=== PATIENT | male | born 1955 | race Caucasian/White ===

== ENCOUNTER → 2023-01-18 09:37 | Outpatient (BNVA) | payer MEDICARE, SELFPAY | PROVIDERS: PCP Family Medicine; Visit Provider Psychiatry & Neurology Neurology | DX: R20.2 Paresthesia of skin (principal) | CPT/HCPCS: 99202 ==

== ENCOUNTER 2023-03-04 08:50 | Outpatient (REF) | payer MEDICARE, SELFPAY ==
--- NOTE | 2023-03-04 09:05 | EMG_ITS ---
FINDINGS: Bilateral tibial and peroneal motor studies were performed. Bilateral radial sensory studies were performed. Bilateral medial and lateral plantar mixed studies were performed. Tibial H reflexes were obtained and paraspinal muscles were tested with a needle. IMPRESSION: [id number] axonal sensory motor peripheral neuropathy. MD SHAZIA Valladares/LILIANA / [phone]
== END 2023-03-04 08:51 | disposition home or self-care (01) ==
LOC: HO.NEURO 08:50
PROVIDERS: PCP Family Medicine; Visit Provider Psychiatry & Neurology Neurology
DX: R20.2 Paresthesia of skin (principal)
CPT/HCPCS: 95886; 95913

== ENCOUNTER 2023-05-06 11:18 | Outpatient (AMB) | payer MEDICARE, SELFPAY ==
[2023-05-06 11:19] VITALS: BP 130/76; PULSE 66; O2SAT 98; BMI 25.4
--- NOTE | 2023-05-06 11:19 | A.OFFVIS_ITS ---
Intake Vital Signs 05/06/23 11:19 Height 5 ft 7 in Weight 162 lb 8 oz BMI 25.4 BP 130/76 Blood Pressure Location Lt brachial Position Sitting Pulse 66 Pulse Source Pulse Oximeter Pulse Oximetry (%) 98 Oxygen Delivery Method Room Air Intake Visit Reasons: 3m follow up Periphereal Neurology-confirmed Intake Note: Pt presents as a 3 month f/u. Deputy Treasurer Required: No Allergies No Known Allergies Allergy (Verified 05/06/23 11:22) Medication List - Last Reconciled 05/06/23 by Maggie Zeng MD alpha lipoic acid 600 mg PO DAILY aspirin 81 mg PO DAILY ezetimibe (Zetia) 10 mg PO DAILY lisinopril-hydrochlorothiazide 20-12.5 mg 1 tab PO DAILY omega 7-skn-tnq-fish oil 60-90-500 mg (Fish Oil) 1 cap PO DAILY simvastatin 20 mg PO DAILY HPI HPI Comments History of Present Illness Details 67y/o male comes for follow up of intermittent abnormal sensation in his feet which started about 3 years ago. He was started on alpha lipoic acid which helps/ he denies any worsening His EMG was c/w sensorimotor axonal neuropathy.His labs were normal The episodes are usually when he is wearing his shoes and ambulating . Once he takes his shoes off and rests he is better in 30 minutes. It does not happen when he is wearing slippers or sandals. He describes the sensation as feeling hot and uncomfortable in his feet ( R>L). He denies back pain, tingling sensation , numbness. He has noticed improvement with stretching his toes.when he takes his shoes off the skin is red transiently.He denies uE symptoms , weakness. 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 [facility] Medical History Axonal sensorimotor neuropathy Colon polyp HTN (hypertension) Hyperlipidemia BOY on CPAP Paresthesias Prediabetes Thyroid nodule Surgical History H/O colonoscopy H/O hernia repair Family History Mother HTN (hypertension) Father Colon cancer Diabetes HTN (hypertension) Brother Diabetes HTN (hypertension) Sister Diabetes HTN (hypertension) Social History Alcohol intake: current Alcohol intake frequency: 0-2 drinks per day Alcohol type: beer Patient Tobacco Use Status: Never used Tobacco Physical Exam Vital Signs: Last Vital Signs Pulse 66 05/06/23 11:19 BP 130/76 05/06/23 11:19 Pulse Ox 98 05/06/23 11:19 Oxygen Delivery Method Room Air 05/06/23 11:19 BMI result Body Mass Index 25.4 Const General: cooperative, healthy appearing, comfortable, no acute distress and well developed Nutritional Appearance: average body habitus Orientation/consciousness: patient oriented x3 Limitations: no limitations HEENT Head: Yes normal to inspection and Yes normocephalic Neuro General: patient oriented x3, gait normal, tone normal and moves all extremities Cognition (Neuro): normal cognition Gait exam (Neuro): Other gait observations present (mild stoop ) Motor exam (neuro): 5/5 motor strength present throughout and Normal motor muscle tone present throughout Deep tendon reflexes (DTR's): Right triceps reflex intensity grade: 2+, Left triceps reflex intensity grade: 2+, Rt Biceps (C5, C6): 2+, Left biceps reflex intensity grade: 2+, Right brachioradialis reflex intensity grade: 2+, Left brachioradialis reflex intensity grade: 2+, Right patellar reflex intensity grade: 1+, Left patellar reflex intensity grade: 1+, Right ankle reflex inten sity grade: 0 and Left ankle reflex intensity grade: 0 Coordination: [id number] test normal Psych Appearance: grossly normal Assessment & Plan Assessment & Plan (1) Axonal sensorimotor neuropathy: Code(s): G6. - Other specified polyneuropathies Plan Continue alpha lipoic acid 600mg qd I will check his anti Hu antibody SPEP. will consider pT Orders: Orders HU Antibody Today - Other specified polyneuropathies Protein Electrophoresis, Serum Today - Other specified polyneuropathies Protein Electrophoresis,Ran Ur Today - Other specified polyneuropathies Coding Level of Care Code Est Pt Level 4 (92872) Diagnoses Axonal sensorimotor neuropathy
== END 2023-05-06 11:52 | disposition home or self-care (01) ==
PROVIDERS: Visit Provider Psychiatry & Neurology Neurology
DX: G62.89 Other specified polyneuropathies (principal)
CPT/HCPCS: 99214

== ENCOUNTER → 2023-05-06 11:18 | Outpatient (BNVA) | payer MEDICARE, SELFPAY | PROVIDERS: Visit Provider Psychiatry & Neurology Neurology | DX: G62.89 Other specified polyneuropathies (principal); Z79.899 Other long term (current) drug therapy | CPT/HCPCS: 99212 ==

== ENCOUNTER 2023-11-16 10:12 | Outpatient (AMB) | payer MEDICARE, SELFPAY ==
--- NOTE | 2023-11-16 10:16 | MHC.OFFVIS ---
Intake Vital Signs 11/16/23 10:17 Height 5 ft 7 in Weight 160 lb BMI 25.1 BP 120/62 Blood Pressure Location Rt brachial Position Sitting Respiration 16 Pulse 67 Pulse Source Pulse Oximeter Pulse Oximetry (%) 99 Oxygen Delivery Method Room Air Intake Visit Reasons: follow up Intake Note: Pt presents for 4 month follow up for peripheral neuropathy. Supervising Fire Marshal Required: No Allergies No Known Allergies Allergy (Verified 11/16/23 10:17) HPI HPI Comments History of Present Illness Details 67y/o male comes for follow up of intermittent abnormal sensation in his feet which started about 3 years ago. He was started on alpha lipoic acid which helps/ he denies any worsening His EMG was c/w sensorimotor axonal neuropathy.His labs were normal except for AMY positive speckled. The episodes are usually when he is wearing his shoes and ambulating . Once he takes his shoes off and rests he is better in 30 minutes. It does not happen when he is wearing slippers or sandals. He describes the sensation as feeling hot and uncomfortable in his feet ( R>L). He denies back pain, tingling sensation , numbness. He has noticed improvement with stretching his toes.when he takes his shoes off the skin is red transiently.He denies uE symptoms , weakness. 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 [facility] Medical History Axonal sensorimotor neuropathy Colon polyp HTN (hypertension) Hyperlipidemia BOY on CPAP Paresthesias Prediabetes Thyroid nodule Surgical History H/O hernia repair H/O colonoscopy Family History Mother HTN (hypertension) Father Colon cancer Diabetes HTN (hypertension) Brother Diabetes HTN (hypertension) Sister Diabetes HTN (hypertension) Social History Alcohol intake: current Alcohol intake frequency: 0-2 drinks per day Alcohol type: beer Patient Tobacco Use Status: Never used Tobacco Physical Exam Vital Signs: Last Vital Signs Pulse 67 11/16/23 10:17 Resp 16 11/16/23 10:17 BP 120/62 11/16/23 10:17 Pulse Ox 99 11/16/23 10:17 Oxygen Delivery Method Room Air 11/16/23 10:17 BMI result Body Mass Index 25.1 Const General: cooperative, healthy appearing, comfortable, no acute distress and well developed Nutritional Appearance: average body habitus Orientation/consciousness: patient oriented x3 Limitations: no limitations HEENT Head: Yes normal to inspection and Yes normocephalic Neuro General: patient oriented x3, gait normal, tone normal and moves all extremities Cognition (Neuro): normal cognition Gait exam (Neuro): Other gait observations present (mild stoop ) Motor exam (neuro): 5/5 motor strength present throughout and Normal motor muscle tone present throughout Coordination: [id number] test normal Psych Appearance: grossly normal Assessment & Plan Assessment & Plan (1) Axonal sensorimotor neuropathy: Code(s): G62.89 - Other specified polyneuropathies Plan Continue alpha lipoic acid 600mg qd anti Hu antibody SPEP.were negative Positive AMY - will discuss with continuous improvement analyst Coding Level of Care Code Est Pt Level 3 (64021) Diagnoses Axonal sensorimotor neuropathy G62.89
[2023-11-16 10:17] VITALS: BP 120/62; PULSE 67; RESP 16; O2SAT 99; BMI 25.1
== END 2023-11-16 10:48 | disposition home or self-care (01) ==
PROVIDERS: PCP Family Medicine; Visit Provider Psychiatry & Neurology Neurology
DX: G62.89 Other specified polyneuropathies (principal)
CPT/HCPCS: 99213

== ENCOUNTER → 2023-11-16 10:12 | Outpatient (BNVA) | payer MEDICARE, SELFPAY | PROVIDERS: PCP Family Medicine; Visit Provider Psychiatry & Neurology Neurology | DX: G62.89 Other specified polyneuropathies (principal) | CPT/HCPCS: 99212 ==

== ENCOUNTER 2023-12-21 08:33 | Outpatient (AMB) | payer MEDICARE, SELFPAY ==
--- NOTE | 2023-12-21 08:41 | A.OFFVIS_ITS ---
Intake Vital Signs 3 12/21/23 08:42 Height 5 ft 7 in Weight 167 lb 1.766 oz BMI 26.2 BP 132/68 Blood Pressure Location Rt brachial Position Sitting Pulse 70 Pulse Source Pulse Oximeter Pulse Oximetry (%) 97 Oxygen Delivery Method Room Air Intake Visit Reasons: polyneuropathies/cm Intake Note: New pt presents today for +AMY consult, internally referred by neurology Dr Zeng. C/o bl feet pain. States he saw clay artisan in [place] about 2 years ago, but was not very helpful. Customer Advocate Required: No Accompanied by: Self / Same As Patient Allergies No Known Allergies Allergy (Verified 12/21/23 08:49) Medication List - Last Reconciled 12/21/23 by Shey Sanders MD alpha lipoic acid 600 mg PO DAILY aspirin 81 mg PO DAILY ezetimibe-simvastatin 10-20 mg 1 tab PO BEDTIME lisinopril-hydrochlorothiazide 20-12.5 mg 1 tab PO DAILY omega 6-jbd-izn-fish oil 60-90-500 mg (Fish Oil) 1 cap PO DAILY HPI HPI Comments 2 History of Present Illness0 Details 68-year-old male is referred from Neurol og for evaluation of a positive AMY. This was in the setting of paresthesias of lower extremities. The condition started about 4 years ago. He would have burning, hot sensation and tingling of his feet bilaterally. This would be triggered by doing yd work, especially in the cold, but it even sometimes happens in the summer. He also notices reddish discoloration of his toes in the morning. He does not believe he has the triphasic color change of Raynaud's. He denies any change in color of his hands. He was started on alpha lipoic acid about a year ago and it provides about 50% relief. Denies any other symptoms such as fevers, weight loss, skin rashes, blood or froth in urine. States that he has dry mouth but he uses a CPAP machine at night. Does not have dry mouth throughout the day and no significant dry eyes. States that he had skin growth in the back of his neck and it was removed Mohs surgery a few years ago. Was told it was cancerous or precancerous. Denies any history of DVT/PE. Patient states that he smokes a cigar once a month. No history of regular tobacco use. No known family history of an autoimmune rheumatic disease but colorectal cancer runs in the family. He gets a colonoscopy every 3 years. [facility] Medical History Positive AMY (antinuclear antibody) Axonal sensorimotor neuropathy Paresthesias Thyroid nodule Prediabetes Colon polyp Hyperlipidemia HTN (hypertension) BOY on CPAP Surgical History H/O hernia repair H/O colonoscopy Family History Mother HTN (hypertension) Father Colon cancer Diabetes HTN (hypertension) Brother Diabetes HTN (hypertension) Sister Diabetes HTN (hypertension) Social History Alcohol intake: current Alcohol intake frequency: a few times a week Alcohol type: beer Patient Tobacco Use Status: Never used Tobacco Current occupational status: retired Review of Systems Const Denies fever(s) and Denies weight loss Eyes Denies dry eyes Musc Reports arthralgias, Denies joint swelling and Reports numbness Neuro Reports numbness and Reports paresthesias Physical Exam Vital Signs: Last Vital Signs Pulse 70 12/21/23 08:42 BP 132/68 12/21/23 08:42 Pulse Ox 97 12/21/23 08:42 Oxygen Delivery Method Room Air 12/21/23 08:42 BMI result Body Mass Index 26.2 Const General: cooperative, healthy appearing and comfortable Nutritional Appearance: average body habitus Orientation/consciousness: patient oriented x3 Limitations: no limitations HEENT Head: Yes normocephalic and Yes atraumatic Mouth: moist mucous membranes Resp Effort & Inspection: normal respiratory effort and able to speak in complete sentences Auscultation: clear to auscultation bilaterally Cardio Rate: regular rate Rhythm: regular rhythm Neuro General: patient oriented x3 Extrem Other: No active synovitis Normal finger and toes nailfold capillaroscopy Bilateral cool toes Normal dorsalis pedis pulsation Assessment & Plan Assessment & Plan (1) Positive AMY (antinuclear antibody): Code(s): R76.8 - Other specified abnormal immunological findings in serum Plan: This is a 68-year-old male who was referred by neurologist for evaluation of a positive AMY this was in the context of paresthesias both feet. There is some suggestion that his symptoms are triggered by cold exposure. On exam he has reddish discoloration of toes, cool toes. Will order comprehensive serology to screen for underlying autoimmune rheumatic disease. Follow-up in 4 weeks Plan I spent 47 minutes reviewing patient's chart, evaluating patient, ordering diagnostic workup, counseling patient and documenting in the chart Orders: Orders 2 Beta-2 Glycoprotein Antibody Today D68.61 - Antiphospholipid syndrome Cardiolipin Antibodies Today D68.61 - Antiphospholipid syndrome Lupus Anticoagulant Panel Today D68.61 - Antiphospholipid syndrome Anti Extractable Nuclear Ag Today M32.9 - Systemic lupus erythematosus, unspecified Anti DNA DS Antibody Today M32.9 - Systemic lupus erythematosus, unspecified Complement C4 Today M32.9 - Systemic lupus erythematosus, unspecified C Reactive Protein Today M32.9 - Systemic lupus erythematosus, unspecified Protein Creatinine Ratio, Ur Today M32.9 - Systemic lupus erythematosus, unspecified Sjogren's Antibodies Today M32.9 - Systemic lupus erythematosus, unspecified Comprehensive Met. Panel Today M32.9 - Systemic lupus erythematosus, unspecified Scleroderma 12 Panel Today M34.9 - Systemic sclerosis, unspecified Thyroglobulin Antibodies Today E07.9 - Disorder of thyroid, unspecified TSH reflex Free T4 Today E07.9 - Disorder of thyroid, unspecified Cryoglobulin Today D89.1 - Cryoglobulinemia AMY Reflex Titer and Pattern Today M32.9 - Systemic lupus erythematosus, unspecified Complement C3 Today M32.9 - Systemic lupus erythematosus, unspecified DNA Double Stranded-Crithidia Today M32.9 - Systemic lupus erythematosus, unspecified Erythrocyte Sedimentation Rate Today M32.9 - Systemic lupus erythematosus, unspecified UA w Microscopic Today M32.9 - Systemic lupus erythematosus, unspecified Complete Blood Count Auto Diff Today M32.9 - Systemic lupus erythematosus, unspecified Immunofixation Pnl, Serum Today M34.9 - Systemic sclerosis, unspecified Protein Electrophoresis, Serum Today M34.9 - Systemic sclerosis, unspecified Thyroid Peroxidase Antibodies Today E07.9 - Disorder of thyroid, unspecified Hepatitis A,B,C Profile Today Z11.59 - Encounter for screening for other viral diseases Coding Level of Care Code New Pt Level 4 (49291) Diagnoses Positive AMY (antinuclear antibody) R76.8
[2023-12-21 08:42] VITALS: BP 132/68; PULSE 70; O2SAT 97; BMI 26.2
== END 2023-12-21 09:22 | disposition home or self-care (01) ==
PROVIDERS: PCP Family Medicine; Visit Provider Student in an Organized Health Care Education/Training Program
DX: R76.8 Other specified abnormal immunological findings in serum (principal)
CPT/HCPCS: 99204

== ENCOUNTER 2023-12-21 08:33 | Outpatient (REF) | payer MEDICARE, SELFPAY ==
[2023-12-21 10:24] LABS: MANUAL DIFF FLAG NO
[2023-12-21 10:41] LABS: Basophils Percent Auto 0.6 % (0-2); Eosinophils Absolute Auto 0.1 X10*3/uL (0.0-0.4); Hematocrit 45.6 % (42.0-52.0); Hemoglobin 15.9 g/dl (14.0-18.0); Imm Gran Abs Auto 0.06 X10*3/uL (0.00-0.03); Imm Gran Pct Auto 1.2 % (0.0-0.4); Lymphocytes Absolute Auto 0.8 X10*3/uL (1.2-4.9); Mean Corpuscular HGB Conc 34.9 g/dl (31.0-36.0); Mean Corpuscular Hemoglobin 31.5 pg (27.0-33.0); Mean Corpuscular Volume 90.3 fL (80.0-98.0); Mean Platelet Volume 11.4 fL (9.4-12.4); Monocytes Absolute Auto 0.5 X10*3/uL (0.1-1.2); Monocytes Percent Auto 9.6 % (2-11); Neutrophils Absolute Auto 3.7 x10*3/uL (2.0-8.3); Neutrophils Percent Auto 71.6 % (45-73); Platelet Count 176 X10*3/uL (160-400); Red Blood Count 5.05 X10*6/uL (4.60-5.80); Red Cell Distribution Width 12.4 % (11.0-16.0); White Blood Count 5.2 X10*3/uL (4.8-10.8)
[2023-12-21 11:37] LABS: Erythrocyte Sedimentation Rate 2 MM/HR (0-15)
[2023-12-21 11:57] LABS: Appearance Urine Clear; Color Urine Dark Yellow; Glucose Urine UA Negative (Negative); Leukocyte Esterase Urine Negative (Negative); Nitrite Urine Negative (Negative); Urine Blood Negative (Negative); Urine Ketones Negative (Negative); Urine Protein Negative (Neg-Trace)
[2023-12-21 12:03] LABS: Bacteria Urine None Seen (None Seen); Hyaline Casts Urine 0-2 /LPF (0-2); RBC Urine 0-2 /HPF (0-2); Squamous Epithelial Cell Urine 0-2 /HPF (0-2); WBC Urine 0-5 /HPF (0-5)
[2023-12-21 12:11] LABS: Alanine Aminotransferase 23 U/L (0-40); Albumin Level 4.6 g/dL (3.5-5.0); Alkaline Phosphatase 78 U/L (39-117); Anion Gap 13 (12-20); Aspartate Amino Transferase 24 U/L (5-37); Bilirubin Total 0.7 mg/dL (0.0-1.0); Blood Urea Nitrogen 17 mg/dL (9-16); C Reactive Protein < 0.10 mg/dL (< or = 0.50); Calcium 9.7 mg/dL (8.4-10.2); Carbon Dioxide 25 mmol/L (22-29); Chloride 103 mmol/L (96-108); Estimated Glomerular Filt Rate > 60; Glucose Random 125 mg/dL (60-115); Potassium 3.7 mmol/L (3.3-5.1); Sodium 137 mmol/L (135-145); Total Protein 7.7 g/dL (6.5-8.0)
[2023-12-21 12:30] LABS: TSH reflex Free T4 1.51 uIU/mL (0.32-4.0)
[2023-12-21 12:33] LABS: HBS Num1 0.39 mIU/mL (0-7.99); HBc Num1 0.11 S/CO (0.00-0.79); HBsAGNum1 0.29 S/CO (0.00-0.99); Hepatitis A Antibody IgM 0.15 Index (0-0.79); Hepatitis B Core Antibody Nonreactive (Nonreactive); Hepatitis B Surface Antigen Negative (Negative); ~Hepatitis A Antibody IgM Nonreactive (Nonreactive); ~Hepatitis B Surface Antibody NONREACTIVE (Nonreactive); ~Hepatitis C Antibody Nonreactive (Nonreactive)
[2023-12-21 13:05] LABS: Creatinine Urine 97.42 mg/dL; Total Protein Urine Random < 7 mg/dL (<12)
[2023-12-22 09:38] LABS: Thyroglobulin Antibodies <1 IU/mL (< or = 1); Thyroid Peroxidase Antibodies <1 IU/mL (<9)
[2023-12-22 13:18] LABS: Prot Elec - Albumin 4.9 g/dL (3.8-4.8); Prot Elec - Alpha1 0.2 g/dL (0.2-0.3); Prot Elec - Alpha2 0.7 g/dL (0.5-0.9); Prot Elec - Beta 1 0.5 g/dL (0.4-0.6); Prot Elec - Beta 2 0.4 g/dL (0.2-0.5); Prot Elec - Gamma 0.9 g/dL (0.8-1.7); Prot Elec - Total Protein 7.6 g/dL (6.1-8.1)
[2023-12-22 20:09] LABS: Anti DNA DS Antibody <1 IU/mL; Antibody to SS-A Antigen <1.0 NEG AI (<1.0 NEG); Antibody to SS-B Antigen <1.0 NEG AI (<1.0 NEG); SM/Ribonucleoprotein Ab <1.0 NEG AI (<1.0 NEG); Smith Protein <1.0 NEG AI (<1.0 NEG)
[2023-12-23 09:28] LABS: Complement C3 72 mg/dL (82-185)
[2023-12-23 11:43] LABS: IgA 254 mg/dL (70-320); IgG 1005 mg/dL (600-1540); IgM 102 mg/dL (50-300)
[2023-12-23 14:59] LABS: Cardiolipin IgG Ab <2.0 GPL-U/mL; Cardiolipin IgM Ab 2.7 MPL-U/mL
[2023-12-23 15:07] LABS: Anti Nuclear Antibody Screen NEGATIVE (NEGATIVE)
[2023-12-24 23:03] LABS: Beta-2 Glycoprotein IgA <2.0 U/mL (<20.0); Beta-2 Glycoprotein IgG <2.0 U/mL (<20.0); Beta-2 Glycoprotein IgM 5.5 U/mL (<20.0)
[2023-12-25 00:19] LABS: DNAds, Crithidia Antibody Negative (Negative)
[2023-12-25 07:23] LABS: PTT (LAC) Screen 36 sec (<=40)
[2023-12-27 20:43] LABS: Cryoglobulin, Qual Negative (Negative)
[2024-01-01 18:23] LABS: Centromere Protein A Ab <11 SI (<11); Centromere Protein B Ab <11 SI (<11); Fibrillarin Ab <11 SI (<11); PM SCL 100 Ab <11 SI (<11); PM SCL 75 Ab <11 SI (<11); RNA Polymerase III RP11 Ab <11 SI (<11); RNA Polymerase III RP155 Ab <11 SI (<11); SCL-70 Extractable Nuclear Ab <11 SI (<11); Th-To Ab <11 SI (<11); U1 SNRNP RNP 70KD <11 SI (<11); U1 SNRNP RNP A <11 SI (<11); U1 SNRNP RNP C <11 SI (<11)
== END 2023-12-21 08:34 | disposition home or self-care (01) ==
LOC: HO.LAB 08:33
PROVIDERS: PCP Family Medicine; Visit Provider Student in an Organized Health Care Education/Training Program
DX: E07.9 Disorder of thyroid, unspecified (principal); R76.8 Other specified abnormal immunological findings in serum; G62.9 Polyneuropathy, unspecified; R20.2 Paresthesia of skin; D68.61 Antiphospholipid syndrome; M32.9 Systemic lupus erythematosus, unspecified; M34.9 Systemic sclerosis, unspecified; D89.1 Cryoglobulinemia; Z11.59 Encounter for screening for other viral diseases; Z72.89 Other problems related to lifestyle; Z79.899 Other long term (current) drug therapy
CPT/HCPCS: 36415; 80053; 81001; 82570; 82595; 82784; 84156; 84165; 84182; 84443; 85025; 85597; 85598; 85613; 85652; 85730; 86038; 86140; 86146; 86147; 86160; 86225; 86235; 86255; 86334; 86376; 86704; 86706; 86709; 86800; 86803; 87340; 99202

== ENCOUNTER 2024-02-28 07:54 | Outpatient (AMB) | payer MEDICARE, SELFPAY ==
--- NOTE | 2024-02-28 07:54 | A.OFFVIS_ITS ---
Vital Signs 3 02/28/24 07:55 Height 5 ft 7 in Weight 170 lb 10.205 oz BMI 26.7 BP 138/66 Blood Pressure Location Rt brachial Position Sitting Pulse 73 Pulse Source Pulse Oximeter Pulse Oximetry (%) 100 Oxygen Delivery Method Room Air Intake Visit Reasons: AMY +ve Intake Note: Patient last seen 12/21/23 presents today for follow up and test results. Allergies No Known Allergies Allergy (Verified 02/28/24 07:57) Medication List - Last Reconciled 02/28/24 by Shey Sanders MD alpha lipoic acid 600 mg PO DAILY aspirin 81 mg PO DAILY ezetimibe-simvastatin 10-20 mg 1 tab PO BEDTIME lisinopril-hydrochlorothiazide 20-12.5 mg 1 tab PO DAILY omega 6-hop-zzj-fish oil 60-90-500 mg (Fish Oil) 1 cap PO DAILY HPI Comments Details: Patient returns for follow-up after completion of his diagnostic workup. Continues to feel about the same. Gets abnormal sensation in his toes after standing in work shows for 5-6 hours. Denies any significant change in color of his fingers or toes. Denies any increased sensitivity to cold in his fingers and toes. Has noticed new skin rashes on the inner aspect of his face bilaterally Initial history: 68-year-old male is referred from Neurology for evaluation of a positive AMY. This was in the setting of paresthesias of lower extremities. The condition started about 4 years ago. He would have burning, hot sensation and tingling of his feet bilaterally. This would be triggered by doing yd work, especially in the cold, but it even sometimes happens in the summer. He also notices reddish discoloration of his toes in the morning. He does not believe he has the triphasic color change of Raynaud's. He denies any change in color of his hands. He was started on alpha lipoic acid about a year ago and it provides about 50% relief. Denies any other symptoms such as fevers, weight loss, skin rashes, blood or froth in urine. States that he has dry mouth but he uses a CPAP machine at night. Does not have dry mouth throughout the day and no significant dry eyes. States that he had skin growth in the back of his neck and it was removed Mohs surgery a few years ago. Was told it was cancerous or precancerous. Denies any history of DVT/PE. Patient states that he smokes a cigar once a month. No history of regular tobacco use. No known family history of an autoimmune rheumatic disease but colorectal cancer runs in the family. He gets a colonoscopy every 3 years. [facility] Medical History Positive AMY (antinuclear antibody) Axonal sensorimotor neuropathy Paresthesias Thyroid nodule Prediabetes Colon polyp Hyperlipidemia HTN (hypertension) BOY on CPAP Surgical History H/O hernia repair H/O colonoscopy Family History Mother HTN (hypertension) Father Colon cancer Diabetes HTN (hypertension) Brother Diabetes HTN (hypertension) Sister Diabetes HTN (hypertension) Social History Alcohol intake: current Alcohol intake frequency: a few times a week Alcohol type: beer Patient Tobacco Use Status: Never used Tobacco Current occupational status: retired Review of Systems Const Denies fever(s) and Denies weight loss Eyes Denies dry eyes Musc Reports arthralgias, Denies joint swelling and Reports numbness Skin/Breast Reports rash Neuro Reports numbness and Reports paresthesias Physical Exam Vital Signs: Last Vital Signs Pulse 73 02/28/24 07:55 BP 138/66 02/28/24 07:55 Pulse Ox 100 02/28/24 07:55 Oxygen Delivery Method Room Air 02/28/24 07:55 BMI result Body Mass Index 26.7 Const General: cooperative, healthy appearing and comfortable Nutritional Appearance: average body habitus Orientation/consciousness: patient oriented x3 Limitations: no limitations HEENT Head: Yes normocephalic and Yes atraumatic Mouth: moist mucous membranes Resp Effort & Inspection: normal respiratory effort and able to speak in complete sentences Auscultation: clear to auscultation bilaterally Cardio Rate: regular rate Rhythm: regular rhythm Skin Other: Rash On the lateral aspect of his face bilaterally Neuro General: patient oriented x3 Extrem Other: No active synovitis Normal finger and toes nailfold capillaroscopy Bilateral cool toes Mildly cool fingers Normal dorsalis pedis pulsation Results Reviewed Results Reviewed: Labs 04/2023 AMY 1-160 speckled Assessment & Plan Assessment & Plan (1) SLE (systemic lupus erythematosus): Code(s): M32.9 - Systemic lupus erythematosus, unspecified Category: Medical Qualifiers: Systemic lupus erythematosus type: other Systemic lupus erythematosus organ involvement: unspecified Qualified Code(s): M32.8 - Other forms of systemic lupus erythematosus Plan: This is a 68-year-old male who was initially referred by Neurology for evaluation of a positive AMY. This was in the setting of paresthesias of his lower extremities. Exam patient had bilateral cool toes, with mild reddish discoloration (?lupus pernio) bilateral cool fingers, today on exam he has rash on the lateral aspect of his face (?Discoid lupus) Labs showed lymphopenia and low C3 and C4. Possible mild SLE. Patient will make an appointment with his molasses coloring operator for evaluation of the new rash on the outer aspect of his face Start hydroxychloroquine 200 mg Twice daily. Dose should be screened bout to 400 mg x 6 days a week and 200 mg 1 day a week Advised patient keep his feet warm Labs before next visit in 3 months (2) Long-term use of hydroxychloroquine: Code(s): Z79.899 - Other anthropology and archeology instructor (current) drug therapy Category: Medical Plan: Discussed risk of retinopathy associated with hydroxychloroquine. Advised patient to make an appointment with final assembly worker. Plan I spent 30 minutes reviewing patient's chart, evaluating patient, ordering diagnostic workup, counseling patient and documenting in the chart Orders: Orders 2 Complement C3 3 Months M32.9 - Systemic lupus erythematosus, unspecified C Reactive Protein 3 Months M32.9 - Systemic lupus erythematosus, unspecified UA w Microscopic 3 Months M32.9 - Systemic lupus erythematosus, unspecified Comprehensive Met. Panel 3 Months M32.9 - Systemic lupus erythematosus, unspecified Anti DNA DS Antibody 3 Months M32.9 - Systemic lupus erythematosus, unspecified Complement C4 3 Months M32.9 - Systemic lupus erythematosus, unspecified Erythrocyte Sedimentation Rate 3 Months M32.9 - Systemic lupus erythematosus, unspecified Protein Creatinine Ratio, Ur 3 Months M32.9 - Systemic lupus erythematosus, unspecified Complete Blood Count Auto Diff 3 Months M32.9 - Systemic lupus erythematosus, unspecified Medications: New 2 hydroxychloroquine 200 mg PO BID 60 tabs 2RF Coding Level of Care Code Est Pt Level 4 (67661) Diagnoses Other forms of systemic lupus erythematosus, unspecified organ involvement status M32.8 Systemic lupus erythematosus type: other Systemic lupus erythematosus organ involvement: unspecified Long-term use of hydroxychloroquine Z79.899
[2024-02-28 07:55] VITALS: BP 138/66; PULSE 73; O2SAT 100; BMI 26.7
== END 2024-02-28 08:42 | disposition home or self-care (01) ==
PROVIDERS: PCP Family Medicine; Visit Provider Student in an Organized Health Care Education/Training Program
DX: M32.8 Other forms of systemic lupus erythematosus (principal); Z79.899 Other long term (current) drug therapy
CPT/HCPCS: 99214

== ENCOUNTER → 2024-02-28 07:54 | Outpatient (BNVA) | payer MEDICARE, SELFPAY | PROVIDERS: PCP Family Medicine; Visit Provider Student in an Organized Health Care Education/Training Program | DX: M32.8 Other forms of systemic lupus erythematosus (principal); Z79.899 Other long term (current) drug therapy | CPT/HCPCS: 99212 ==

== ENCOUNTER 2024-05-30 12:50 | Outpatient (REF) | payer MEDICARE, SELFPAY ==
[2024-05-30 14:30] LABS: Appearance Urine Clear; Color Urine Yellow; Glucose Urine UA Negative (Negative); Leukocyte Esterase Urine Negative (Negative); Nitrite Urine Negative (Negative); PH 6.5 (5.0-9.0); Urine Blood Negative (Negative); Urine Ketones Trace mg/dL (Negative); Urine Protein Negative (Neg-Trace)
[2024-05-30 14:33] LABS: Bacteria Urine None Seen (None Seen); Hyaline Casts Urine 0-2 /LPF (0-2); RBC Urine 0-2 /HPF (0-2); Squamous Epithelial Cell Urine 0-2 /HPF (0-2); WBC Urine 0-5 /HPF (0-5)
[2024-05-30 15:02] LABS: MANUAL DIFF FLAG NO
[2024-05-30 15:07] LABS: Basophils Percent Auto 0.8 % (0-2); Eosinophils Absolute Auto 0.1 X10*3/uL (0.0-0.4); Eosinophils Percent Auto 1.1 % (0-4); Hematocrit 43.6 % (42.0-52.0); Hemoglobin 14.7 g/dl (14.0-18.0); Imm Gran Abs Auto 0.06 X10*3/uL (0.00-0.03); Imm Gran Pct Auto 1.1 % (0.0-0.4); Lymphocytes Absolute Auto 1.1 X10*3/uL (1.2-4.9); Lymphocytes Percent Auto 20.9 % (20-40); Mean Corpuscular HGB Conc 33.7 g/dl (31.0-36.0); Mean Corpuscular Hemoglobin 31.3 pg (27.0-33.0); Mean Corpuscular Volume 92.8 fL (80.0-98.0); Mean Platelet Volume 11.2 fL (9.4-12.4); Monocytes Absolute Auto 0.6 X10*3/uL (0.1-1.2); Monocytes Percent Auto 11.7 % (2-11); Neutrophils Absolute Auto 3.4 x10*3/uL (2.0-8.3); Neutrophils Percent Auto 64.4 % (45-73); Platelet Count 193 X10*3/uL (160-400); Red Cell Distribution Width 12.6 % (11.0-16.0); White Blood Count 5.3 X10*3/uL (4.8-10.8)
[2024-05-30 15:21] LABS: Alanine Aminotransferase 28 U/L (0-40); Albumin Level 4.2 g/dL (3.5-5.0); Alkaline Phosphatase 75 U/L (39-117); Anion Gap 11 (12-20); Aspartate Amino Transferase 28 U/L (5-37); Bilirubin Total 0.5 mg/dL (0.0-1.0); Blood Urea Nitrogen 19 mg/dL (9-16); C Reactive Protein 0.22 mg/dL (< or = 0.50); Calcium 9.6 mg/dL (8.4-10.2); Carbon Dioxide 30 mmol/L (22-29); Chloride 104 mmol/L (96-108); Estimated Glomerular Filt Rate > 60; Glucose Random 115 mg/dL (60-115); Potassium 3.8 mmol/L (3.3-5.1); Sodium 141 mmol/L (135-145)
[2024-05-30 15:39] LABS: Total Protein Urine Random < 7 mg/dL (<12)
[2024-05-30 16:00] LABS: Erythrocyte Sedimentation Rate 3 MM/HR (0-15)
[2024-05-31 09:49] LABS: Complement C3 101 mg/dL (82-185)
[2024-06-01 17:08] LABS: Anti DNA DS Antibody <1 IU/mL
== END 2024-05-30 12:51 | disposition home or self-care (01) ==
LOC: HO.WFDLDS 12:50
PROVIDERS: Visit Provider Student in an Organized Health Care Education/Training Program
DX: M32.9 Systemic lupus erythematosus, unspecified (principal)
CPT/HCPCS: 36415; 80053; 81001; 82570; 84156; 85025; 85652; 86140; 86160; 86225

== ENCOUNTER 2024-06-02 08:20 | Outpatient (AMB) | payer MEDICARE, SELFPAY ==
--- NOTE | 2024-06-02 08:28 | A.OFFVIS_ITS ---
Vital Signs 3 06/02/24 08:31 Height 5 ft 7 in Weight 170 lb 13.732 oz BMI 26.8 BP 115/60 Blood Pressure Location Rt brachial Position Sitting Pulse 69 Pulse Source Pulse Oximeter Pulse Oximetry (%) 98 Oxygen Delivery Method Room Air Intake Visit Reasons: SLE Intake Note: Patient presents for SLE. Allergies No Known Allergies Allergy (Verified 06/02/24 08:31) Medication List - Last Reconciled 06/02/24 by Shey Sanders MD alpha lipoic acid 600 mg PO DAILY aspirin 81 mg PO DAILY ezetimibe-simvastatin 10-20 mg 1 tab PO BEDTIME lisinopril-hydrochlorothiazide 20-12.5 mg 1 tab PO DAILY omega 6-inu-qng-fish oil 60-90-500 mg (Fish Oil) 1 cap PO DAILY HPI Comments Details: Patient returns for follow-up , I had suspected lupus pernio last visit and prescribed him hydroxychloroquine. He has been taking it regularly for the last 3 months. Has not noted any improvement. Continues to have intermittent burning sensation of his toes, especially with activity. Rashes on his face are not any different. Initial history: 68-year-old male is referred from Neurology for evaluation of a positive AMY. This was in the setting of paresthesias of lower extremities. The condition started about 4 years ago. He would have burning, hot sensation and tingling of his feet bilaterally. This would be triggered by doing yd work, especially in the cold, but it even sometimes happens in the summer. He also notices reddish discoloration of his toes in the morning. He does not believe he has the triphasic color change of Raynaud's. He denies any change in color of his hands. He was started on alpha lipoic acid about a year ago and it provides about 50% relief. Denies any other symptoms such as fevers, weight loss, skin rashes, blood or froth in urine. States that he has dry mouth but he uses a CPAP machine at night. Does not have dry mouth throughout the day and no significant dry eyes. States that he had skin growth in the back of his neck and it was removed Mohs surgery a few years ago. Was told it was cancerous or precancerous. Denies any history of DVT/PE. Patient states that he smokes a cigar once a month. No history of regular tobacco use. No known family history of an autoimmune rheumatic disease but colorectal cancer runs in the family. He gets a colonoscopy every 3 years. [facility] Medical History Positive AMY (antinuclear antibody) Axonal sensorimotor neuropathy Paresthesias Thyroid nodule Prediabetes Colon polyp Hyperlipidemia HTN (hypertension) BOY on CPAP Surgical History H/O hernia repair H/O colonoscopy Family History Mother HTN (hypertension) Father Colon cancer Diabetes HTN (hypertension) Brother Diabetes HTN (hypertension) Sister Diabetes HTN (hypertension) Social History Alcohol intake: current Alcohol intake frequency: a few times a week Alcohol type: beer Patient Tobacco Use Status: Never used Tobacco Current occupational status: retired Review of Systems Skin/Breast Reports rash Neuro Reports paresthesias Physical Exam Vital Signs: Last Vital Signs Pulse 69 06/02/24 08:31 BP 115/60 06/02/24 08:31 Pulse Ox 98 06/02/24 08:31 Oxygen Delivery Method Room Air 06/02/24 08:31 BMI result Body Mass Index 26.8 Const General: cooperative, healthy appearing and comfortable Nutritional Appearance: average body habitus Orientation/consciousness: patient oriented x3 Limitations: no limitations HEENT Head: Yes normocephalic and Yes atraumatic Resp Effort & Inspection: normal respiratory effort and able to speak in complete sentences Skin Other: Rash On the lateral aspect of his face bilaterally Neuro General: patient oriented x3 Extrem Other: No active synovitis Normal nailfold capillaroscopy Toes remain mildly cool, the erythema at the digital and of his toes has improved Results Reviewed Results Reviewed: Labs 04/2023 AMY 1-160 speckled Assessment & Plan Assessment & Plan (1) SLE (systemic lupus erythematosus): Code(s): M32.9 - Systemic lupus erythematosus, unspecified Category: Medical Qualifiers: Systemic lupus erythematosus type: other Systemic lupus erythematosus organ involvement: unspecified Qualified Code(s): M32.8 - Other forms of systemic lupus erythematosus Plan: This is a 69-year-old male who was initially referred by Neurology for evaluation of a positive AMY. This was in the setting of paresthesias of his lower extremities. Exam patient had bilateral cool toes, with mild reddish discoloration (?lupus pernio) bilateral cool fingers, today on exam he has rash on the lateral aspect of his face (?Discoid lupus) Labs showed lymphopenia and low C3 and C4. Possible mild SLE. I prescribed hydroxychloroquine 200 mg Twice daily for 3 months. Patient states that it did not help him much. Upon examination of his feet. The reddish discoloration of his toes has slightly improved. Symptomatically however patient feels about the same. Continues to have the burning sensation of his toes with activity. Rash on his face is essentially the same His C3 and C4 normalized, lymphopenia improved. This does suggest a mild case of SLE but at this time I do not see a compelling reason to continue with hydroxychloroquine Advised patient keep his feet warm. 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 Appointment next month. He states it is cell side Dermatology. I will send over my notes Follow-up in 6 months for re-evaluation Plan I spent 20 minutes reviewing patient's chart, evaluating patient, counseling patient and documenting in the chart Coding Level of Care Code Est Pt Level 3 (67198) Diagnoses Other forms of systemic lupus erythematosus, unspecified organ involvement status M32.8 Systemic lupus erythematosus type: other Systemic lupus erythematosus organ involvement: unspecified
[2024-06-02 08:31] VITALS: BP 115/60; PULSE 69; O2SAT 98; BMI 26.8
== END 2024-06-02 08:49 | disposition home or self-care (01) ==
PROVIDERS: PCP Family Medicine; Visit Provider Student in an Organized Health Care Education/Training Program
DX: M32.8 Other forms of systemic lupus erythematosus (principal)
CPT/HCPCS: 99213

== ENCOUNTER → 2024-06-02 08:20 | Outpatient (BNVA) | payer MEDICARE, SELFPAY | PROVIDERS: PCP Family Medicine; Visit Provider Student in an Organized Health Care Education/Training Program | DX: M32.8 Other forms of systemic lupus erythematosus (principal) | CPT/HCPCS: 99212 ==